=== PATIENT | male | born 1960 | race Caucasian/White ===

== ENCOUNTER 2025-05-03 13:42 | Emergency (ER) | payer OTHER, SELFPAY ==
[2025-05-03 13:57] VITALS: BP 98/68; PULSE 107; TEMP 36.8; O2SAT 94; BMI 33.7
--- OUTSIDE RECORDS SUMMARY | 2025-05-03 14:33 | XMS_ITS | Clinical Summary ---
Author Organization [facility] Healthcare Address [address] [place] [address] Care Team Providers Care Resident Services Director Name Role Phone Shiva Wilder DO Primary Care Provider [phone] Allergies Active AllergyReactionsCriticalityNoted DateCommentsPenicillinsHivesMedium 05/13/2014 Swollen glands Medications MedicationSigDispense QuantityRefillsLast FilledStart DateEnd DateStatus atorvastatin (Lipitor) 80 MG tablet 08/24/2023ctive Trulicity 1.5 MG/0.5ML solution pen-injector 08/24/2023ctive Steglatro 08/24/2023ctive ezetimibe (Zetia) 10 MG tablet 07/07/2023ctive metFORMIN (Glucophage) 1000 MG tablet 08/21/2023ctive pantoprazole (ProtoNix) 40 MG EC tablet 08/21/2023ctive tadalafil (Cialis) 20 MG tablet 08/24/2023ctive lisinopril 20 MG tablet Take 20 mg by mouth in the morning.Active Active Problems ProblemNoted DateDiagnosed DateType 2 diabetes mellitus without complication, without long-term current use of drpmgre0709/26/2023ge-related nuclear cataract of both eyes09/26/2023ry eyes09/26/2023lepharitis of upper and lower eyelids of both eyes09/26/2023 Social History Tobacco UseTypesPacks/DayYears UsedDateSmoking Tobacco: NeverSmokeless Tobacco: Never Tobacco Cessation:Counseling Given: Not Answered Sex and Gender InformationValueDate RecordedSex Assigned at BirthNot on file Legal GutUqvc4107/20/2022 7:23 PM EDTGender IdentityNot on fileSexual Orientation Not on file Plan of Treatment Not on file Insurance Care Teams Team MemberRelationshipSpecialtyStart DateEnd Date Shiva Wilder DO PCP - GeneralFamily Medicine09/26/23
--- OUTSIDE RECORDS SUMMARY | 2025-05-03 14:33 | XMS_ITS | Clinical Summary ---
Author Organization [facility] Address [address] [place] [address], [address] [place] [address] Care Team Providers Care Rn Operating Room Name Role Phone Unavailable Primary Care Provider Unavailabl e Social History Tobacco UseTypesPacks/DayYears UsedDateSmoking Tobacco: Never AssessedSex and Gender InformationValueDate RecordedSex Assigned at BirthNot on fileLegal Sex Male06/17/2012 5:31 PM ESTGender IdentityNot on fileSexual OrientationNot on file Plan of Treatment Not on file
--- OUTSIDE RECORDS SUMMARY | 2025-05-03 14:33 | XMS_ITS | Clinical Summary ---
Author Organization [facility] Address [address] [place], [place] [address] Care Team Providers Care Display Director Name Role Phone Unavailable Primary Care Provider Unavailabl e Allergies Active AllergyReactionsCriticalityNoted DateCommentsPenicillinsHivesMedium 05/13/2014 Swollen glands Medications MedicationSigDispense QuantityRefillsLast FilledStart DateEnd DateStatus lisinopril (ZESTRIL, PRINIVIL) 20 mg tablet Take 20 mg by mouth once daily.Active metFORMIN (GLUCOPHAGE) 500 mg tablet Take 500 mg by mouth once daily.Active acetaminophen (TYLENOL) 500 mg tablet Take 1 tablet by mouth every 6 hours as needed.ctive calcium carbonate (TUMS) 500 mg chew Take 1 tablet by mouth every hour as needed (mouth or hand numbness or tingling).ctive ibuprofen (MOTRIN) 600 mg tablet Take 1 tablet by mouth every 6 hours as needed.ctive calcium carbonate (OS-AMINTA 500) 500 mg calcium (1,250 mg) tablet Take 1 tablet by mouth three times daily.06/10/2014ctive aspirin, enteric coated (ASPIRIN, ENTERIC COATED) 81 mg EC tablet Take 1 tablet by mouth twice daily.ctive Immunizations ImmunizationAdministration DatesNext Dueinfluenza (IIV4) vaccine, age 6 mo - 64 yr, quadrivalent, PF (AFLURIA, FLUARIX, FLULAVAL, FLUZONE)06/11/2014 Family History Medical HistoryRelationCommentsCoronary Artery DiseaseFatherRelationStatus CommentsFather Social History Tobacco UseTypesPacks/DayYears UsedDateSmoking Tobacco: NeverAlcohol UseStandard Drinks/WeekCommentsNo0 (1 standard drink = 0.6 oz pure alcohol)Sex and Gender InformationValueDate RecordedSex Assigned at BirthNot on fileLegal SexMale 04/15/2014 11:06 AM ESTGender IdentityNot on fileSexual OrientationNot on file Last Filed Vital Signs Vital SignReadingTime TakenCommentsBlood Xkhybwmz385/9106/24/2014 2:26 PM EST Amesr542106/24/2014 2:26 PM ZGHFqsolxjwrsv65.7 ??C (98.1 ??F)06/11/2014 6:00 AM ESTRespiratory Hgli605806/11/2014 6:00 AM ESTOxygen Zjddqtgccf44%06/11/2014 6:00 AM ESTInhaled Oxygen Concentration--Renfrz649.1 kg (262 lb 9.6 oz)06/24/2014 2:26 PM OVLSomxmm209.8 cm (5' 10 )06/10/2014 6:00 PM ESTBody Mass Index37.68 06/10/2014 6:00 PM EST Plan of Treatment Health MaintenanceDue DateLast DoneCommentsAnxiety Pghbpjtba89/07/1977Depression Zrtfibisd94/07/1977Hepatitis C Szxvecein58/07/1977DTaP,Tdap,Td Vaccine (1 - Tdap)1977Lipid Gpwacwgbs39/07/1994CT Vpriijsszpcb04/07/2004Cologuard (FIT-DNA)10/13/20030675Vgbbqsliqzd30/07/2004Colorectal Cancer Odoukqrhv07/07/2004 Fecal Occult Blood10/13/2003Prostate Cancer Screening Xnsrwsjeev40/07/2004 Vliwqhvayncav43/07/2004Pneumococcal Vaccine: 50+ (1 of 1 - PCV)2008 Shingrix Vaccine (1 of 2)2008Diabetes Pncjtqowr69, 05/23/2014dvance Directive Sitilydood60/01/2025ovid-19 Vaccine (1 - 2024- season)2025Influenza Vaccine (#1)/08/2014RSV Vaccine (1 - 1- dose 75+ series)2033 Procedures Procedure NamePriorityDate/TimeAssociated DiagnosisCommentsBASIC METABOLIC PANEL Tinlrnk8206/24/2014 3:01 PM EST Hyperparathyroidism, unspecified (HCC) Preoperative examination, unspecified from Last 3 Months or Most Recently Relevant to Health Maintenance Results * (ABNORMAL) BASIC METABOLIC PNL (06/24/2014 3:01 PM EST)ComponentValueRef Range Test MethodAnalysis TimePerformed AtPathologist MfaqvmdqxBkygund625(H)65 - 100 mg/dLMEM[facility]IAL [facility] MKGXJMINRKOTW5718 - 25 mg/dLMEMORIAL [facility] LABORATORYCreatinine1.020.70 - 1.40 mg/dLMEMORIAL [facility] LAB[facility]ORY Gxxekz198699 - 146 mmol/LCOHIOHEALTH [facility] LABORATORYPotassium4.23.5 - 5.0 mmol/LCAKRON CHILDREN'S [facility]PITAL [facility]IN ZMHFNIBBKJTckitzpb4756 - 110 mmol/LCOHIOHEALTH SHELBY HOSPITAL XWSRCVRTZAET48131 - 32 mmol/LCOHIOHEALTH [facility] HOSPITAL LABORATORYAnion Gap18(H)0 - 15 mmol/LCOHIOHEALTH SHELBY HOSPITAL LABORATORYCalcium9.78.5 - 10.5 mg/dLMEMORIAL [facility] LABORATORYeGFR->60[facility] LABORATORYeGFR-All Other Races>60.[facility] Comment: eGFR (Estimated GFR) Units of measure: mL/min/1.73 meters squared eGFR is derived from the reexpressed MDRD Study equation using the following parameters: serum creatinine, age, gender and race. The creatinine assay has been calibrated to be traceable to IDMS. An eGFR <60 mL/min/1.73m2 for >3 months is consistent with chronic kidney disease. Refer to KDOQI guidelines for clinical interpretation. In patients with unstable renal function, e.g. those with acute kidney injury, the eGFR may not accurately reflect actual GFR. Specimen (Source)Anatomical Location / LateralityCollection Method / Volume Collection TimeReceived TimeBlood specimen (specimen)BLOOD SPECIMEN / Unknown 06/24/2014 3:01 PM EST06/24/2014 3:03 PM EST Narrative Authorizing ProviderResult TypeResult StatusJamie C MitchellLABORATORYFinal ResultPerforming OrganizationAddressCity/State/ZIP CodePhone Number [facility] [address] [place] [address] from Last 3 Months or Most Recently Relevant to Health Maintenance Insurance
[2025-05-03 14:37] LABS: SARS-CoV-2 Ag NEGATIVE (NEGATIVE)
--- NOTE | 2025-05-03 16:37 | ED.GENADUL1 ---
HPI HPI - General Adult General Chief complaint: Shortness of Breath/Dyspnea Stated complaint: SORE THROAT FEVER Time Seen by Provider: 05/03/25 13:44 Source: patient and family Mode of arrival: walk-in Limitations: no limitations History of Present Illness HPI narrative: Patient is a 64-year-old male, no significant medical history outside of hypertension and urq-qkgsicl-swijlwhgv type 2 diabetes, presenting to the emergency department for concerns of shortness of breath. Patient is currently ill with a upper respiratory infection. His PCP placed him on Levaquin, azithromycin, and steroids. He states his symptoms have started to improve, however he was experiencing some shortness of breath earlier today. He took his pulse oximetry which showed 89% on room air. He called his doctor, who recommended he come to the ED for evaluation. Patient states that since his arrival to ED, he actually feels significantly proved. He is having no active shortness of breath or chest pain. No nausea or vomiting. No fevers or chills. No history of OK or coronary artery disease. Related Data Home Medications ?Medication ?Instructions ?Recorded ?Confirmed albuterol sulfate 90 mcg/actuation 2 inh inhalation Q4H PRN shortness 05/03/25 05/03/25 aerosol inhaler of breath or wheezing atorvastatin 80 mg tablet 80 mg PO DAILY 05/03/25 05/03/25 azithromycin 250 mg tablet 250 mg PO Q12H 05/03/25 05/03/25 benzonatate 100 mg capsule 100 mg PO Q6H PRN cough 05/03/25 05/03/25 dapagliflozin propanediol 10 mg 10 mg PO DAILY 05/03/25 05/03/25 tablet (Farxiga) dulaglutide 4.5 mg/0.5 mL 4.5 mg subcut .weekly 05/03/25 05/03/25 subcutaneous pen injector ([facility]) ezetimibe 10 mg tablet 10 mg PO DAILY 05/03/25 05/03/25 levofloxacin 500 mg tablet 500 mg PO Q12H 05/03/25 05/03/25 lisinopril 20 mg tablet 20 mg PO DAILY 05/03/25 05/03/25 metformin 1,000 mg tablet 1,000 mg PO DAILY 05/03/25 05/03/25 Allergies Allergy/AdvReac Type Severity Reaction Status Date / Time Penicillins Allergy Unknown Verified 05/03/25 13:57 Review of Systems ROS Status of ROS 10 or more systems reviewed and unremarkable except as noted in history and below PFSH PFSH Social History Little interest or pleasure in doing things: not at all Feeling down, depressed, or hopeless: not at all Exam Narrative Exam Narrative: CONSTITUTIONAL: Well-appearing, answering questions and following commands appropriately SKIN: Was warm and dry. EYES: Sclerae white. EARS, NOSE, THROAT: Moist oral mucosa. RESPIRATORY: Clear to auscultation bilaterally, no wheezes, crackles, or stridor, no use of accessory muscles CARDIOVASCULAR: Normal rate and regular rhythm. There is no S3, S4, murmur, rub. GASTROINTESTINAL: Abdomen is nondistended. MUSCULOSKELETAL: No peripheral edema. NEUROLOGIC: Patient is awake and alert. Facies were symmetrical. Constitutional Vital Signs, click to edit/add: Last Vital Signs Temp 98.3 F 05/03/25 13:57 Pulse 107 H 05/03/25 13:57 Resp 18 05/03/25 13:57 BP 98/68 05/03/25 13:57 Pulse Ox 94 L 05/03/25 13:57 O2 Del Method Room Air 05/03/25 13:57 Course Vital Signs Vital signs: Vital Signs Temperature 98.3 F 05/03/25 13:57 Pulse Rate 107 H 05/03/25 13:57 Respiratory Rate 18 05/03/25 13:57 Blood Pressure 98/68 05/03/25 13:57 Pulse Oximetry 94 L 05/03/25 13:57 Oxygen Delivery Method Room Air 05/03/25 13:57 Temperature 98.3 F 05/03/25 13:57 Pulse Rate 107 H 05/03/25 13:57 Respiratory Rate 18 05/03/25 13:57 Blood Pressure 98/68 05/03/25 13:57 Pulse Oximetry 94 L 05/03/25 13:57 Oxygen Delivery Method Room Air 05/03/25 13:57 Medical Decision Making [facility] Narrative Medical decision making narrative: Patient is a 64-year-old male, history significant for tinnitus and dependent type 2 diabetes and hypertension, presenting to the emergency department for evaluation of shortness of breath. His vital signs on arrival are within normal limits. He is afebrile hemodynamically stable. He is 94% on room air with clear breath sounds bilaterally. He is in no respiratory stress and has a normal physical examination. Patient is already being treated for this URI with Levaquin, azithromycin, and steroids prescribed by his PCP. Though his home oximetry read low, he has a normal pulse oximetry here in the ED. He is currently asymptomatic with a normal physical examination. I did offer to obtain a workup, including blood work and a chest x-ray, however the patient declined. He states he feels well and wants to be discharged home. I do believe the patient is stable for discharge. They were instructed to follow up with his PCP as needed. Return precautions were given including any new or worsening symptoms. Patient understands and agrees to the plan. FINAL IMPRESSION: #Acute transient shortness of breath, resolved #History of URI currently on antibiotics DISPOSITION: Discharged home CONDITION: Good Lab Data Lab results reviewed: Yes I reviewed the patient's lab results Labs: Lab Results 05/03/25 Range/Units 14:07 Influenza Type A Ag Positive A Influenza Type B Ag Negative SARS-CoV-2 Ag (CV2AG) Negative (NEGATIVE) Discharge Plan Discharge Chief Complaint: Shortness of Breath/Dyspnea Clinical Impression: Mild shortness of breath Patient Disposition: Home, Self-Care Time of Disposition Decision: 14:24 Condition: Good Mode of Transportation: Private Vehicle Prescriptions / Home Meds: No Action albuterol sulfate 90 mcg/actuation HFA aerosol inhaler 2 inh INHALATION Q4H PRN (Reason: shortness of breath or wheezing) atorvastatin 80 mg tablet 80 mg PO DAILY azithromycin 250 mg tablet 250 mg PO Q12H benzonatate 100 mg capsule 100 mg PO Q6H PRN (Reason: cough) levofloxacin 500 mg tablet 500 mg PO Q12H metformin 1,000 mg tablet 1,000 mg PO DAILY lisinopril 20 mg tablet 20 mg PO DAILY Trulicity 4.5 mg/0.5 mL pen injector 4.5 mg SUBCUT .weekly dapagliflozin propanediol [Farxiga] 10 mg tablet 10 mg PO DAILY ezetimibe 10 mg tablet 10 mg PO DAILY Print Language: Lithuanian Instructions: Shortness of Breath (ED) Referrals: Shiva Wilder DO [Primary Care Provider] - 1 week Discharge Date/Time: 05/03/25 14:35
== END 2025-05-03 14:35 | disposition home or self-care (01) ==
LOC: ER 14:30
PROVIDERS: Emergency Provider Student in an Organized Health Care Education/Training Program; Family Provider Family Medicine; PCP Family Medicine
DX: R06.02 Shortness of breath (principal); I10 Essential (primary) hypertension; E11.8 Type 2 diabetes mellitus with unspecified complications
CPT/HCPCS: 87804; 87811; 87880; 99285